=== PATIENT | male | born 1940 | race Caucasian/White ===

== ENCOUNTER 2019-06-14 09:09 | Day surgery (SDC) | payer OTHER ==
[2019-06-14] VITALS (9 sets, daily range): BP systolic 129–149; BP diastolic 66–87
[~2019-06-14] VITALS: Ht 175.3 cm; Wt 93.7 kg
[~2019-06-14 09:09] MED LIST: ALBU18HF2 IH; ASPI-1009 PO; ATOR80TA PO; BUDE10.23 IH; CETI-85 PO; HCTZ25T PO; METO-136 PO; OMEP-84 PO; SILD100T PO; VARE1TAB11 PO; ZET10T PO
[2019-06-14] MEDS ORDERED: diphenhydrAMINE 25mg capsule PO PRN (09:45)
[2019-06-14] MEDS ORDERED: normal saline 1,000 ML IV SCH (09:45)
[2019-06-14] MEDS ORDERED: DIPH-423 PO (10:09)
[2019-06-14] MEDS ORDERED: CARB1TAB23 PO (10:09)
[2019-06-14] MEDS ORDERED: CALC600T12 PO (10:09)
[2019-06-14] MEDS ORDERED: GLUC15006 PO (10:09)
[2019-06-14] MEDS ORDERED: TADA2.5T2 PO (10:09)
[2019-06-14] MEDS ORDERED: VITA1TAB37 PO (10:09)
[2019-06-14] MEDS ORDERED: MAGN500C16 PO (10:09)
[2019-06-14] MEDS ORDERED: MULT-955 PO (10:09)
[2019-06-14] MEDS ORDERED: OMEP20TA5 PO (10:09)
[2019-06-14] MEDS ORDERED: TRAV5DRO OP (10:09)
[2019-06-14] MEDS ORDERED: BRIM5DRO OP (10:09)
[2019-06-14 10:47] LABS: BASOPHILS # (AUTO) 0.1 X10'3 (0-0.2); EOSINOPHILS # (AUTO) 0.1 X10'3 (0-0.9); EOSINOPHILS % (AUTO) 2.3 % (0-6); HEMATOCRIT 30.8 % (42.0-52.0); HEMOGLOBIN 9.6 g/dl (14.0-17.9); LYMPHOCYTES # (AUTO) 0.5 X10'3 (1.1-4.8); LYMPHOCYTES % (AUTO) 8.5 % (21-51); MEAN CORPUSCULAR HEMOGLOBIN 24.9 PG (27.0-31.0); MEAN CORPUSCULAR HGB CONC 31.1 g/dL (33.0-36.5); MEAN CORPUSCULAR VOLUME 80.1 FL (78-98); MEAN PLATELET VOLUME 7.4 FL (7.4-10.4); MONOCYTES # (AUTO) 0.6 X10'3 (0-0.9); MONOCYTES % (AUTO) 10.9 % (2-12); NEUTROPHILS # (AUTO) 4.6 X10'3 (1.8-7.7); NEUTROPHILS % (AUTO) 77.3 % (42-75); PLATELET COUNT 252 X10'3 (140-440); RED BLOOD COUNT 3.85 X10'6 (4.70-6.10); RED CELL DISTRIBUTION WIDTH 19.3 % (11.5-14.5); WHITE BLOOD COUNT 5.9 X10'3 (4.5-11.0)
[2019-06-14 11:10] LABS: ALBUMIN 3.3 G/DL (3.4-5.0); ANION GAP 9 (8-16); BLOOD UREA NITROGEN 19 MG/DL (7-18); CALCIUM 8.4 MG/DL (8.5-10.1); CHLORIDE 107 MMOL/L (99-107); CREATININE 1.27 MG/DL (0.60-1.10); GLUCOSE 105 MG/DL (70-104); POTASSIUM 4.3 MMOL/L (3.5-5.1); SODIUM 143 MMOL/L (135-145); TOTAL CARBON DIOXIDE 27.5 MMOL/L (24-32); eGFR 55 ML/MIN
[2019-06-14 11:40] LABS: ANISOCYTOSIS 2+; ELLIPTOCYTES FEW; PLATELET ESTIMATE NORMAL; POLYCHROMASIA FEW; SCHISTOCYTES FEW; TEAR DROP CELLS FEW
[2019-06-14] MEDS ORDERED: nitroGLYCERIN-Tridil 50MG/D5W 250 ML IV ONE (11:45)
[2019-06-14] MEDS ORDERED: heparin 1,000unit/ml 10ml vial 10 ML ONE ×2 (11:45→12:48)
[2019-06-14] MEDS ORDERED: fentaNYL/PF 50MCG/1 ML 2ML syringe ONE (11:45)
[2019-06-14] MEDS ORDERED: LIDOcaine 1% (10mg/ml)w/preservative injection 20ml MDV ONE (11:45)
[2019-06-14] MEDS ORDERED: verapamil 2.5 mg/ml inj IV ONE (11:45)
[2019-06-14] MEDS ORDERED: midazolam 2 mg/2 ml injection ONE ×6 (11:45→14:21)
[2019-06-14] MEDS ORDERED: iohexol 350 MG/1 ML 200ml bottle ONE (11:46)
[2019-06-14] MEDS ORDERED: clopidogrel 300mg tablet ONE (14:52)
[2019-06-14] MEDS ORDERED: proCHLORperazine 10 MG/2 ml inj IV PRN (15:25)
[2019-06-14] MEDS ORDERED: HYDROcodone/acetaminophen 5mg/325mg tablet PO PRN (15:25)
[2019-06-14] MEDS ORDERED: ondansetron/PF 4mg/2ml inj IV PRN (15:25)
[2019-06-14] MEDS ORDERED: HYDROcodone/acetaminophen 10/325mg tab PO PRN (15:25)
[2019-06-14] MEDS ORDERED: normal saline 1000ml 1,000 ML IV SCH (15:25)
--- NOTE | 2019-06-14 17:00 | NUR ---
placed pressure dressing to rt groin, will continue to monitor, pt vs stable as charted.
--- NOTE | 2019-06-14 17:40 | NUR ---
secured pressure dressing, ariag CD&i. pt sitting up in bed.
--- NOTE | 2019-06-14 18:20 | NUR ---
pt ambulated floor with assistance of walker. Pt states this is patients "normal" strength. site stable.
== END 2019-06-14 21:15 | disposition home or self-care (01) ==
LOC: SSTAY O 09:09
PROVIDERS: ATTEND Internal Medicine Cardiovascular Disease
DX: I70.212 Atherosclerosis of native arteries of extremities with intermittent claudication, left leg (principal); J44.9 Chronic obstructive pulmonary disease, unspecified; I10 Essential (primary) hypertension; F17.210 Nicotine dependence, cigarettes, uncomplicated; I25.10 Atherosclerotic heart disease of native coronary artery without angina pectoris; E78.00 Pure hypercholesterolemia, unspecified; M19.90 Unspecified osteoarthritis, unspecified site; Z98.890 Other specified postprocedural states; Z95.5 Presence of coronary angioplasty implant and graft; Z79.899 Other long term (current) drug therapy; Z79.82 Long term (current) use of aspirin
CPT/HCPCS: 36415; 37225; 37227; 80048; 83735; 85025; 85610; 93005; 99152; 99153; C1725; C1769; C1876; C1885; C1887; C1894; J1644; J2001; J2250; J3010; J7030; Q0163; Q9967; 36140; 36247; A4620; A6258; C1760; C2623; J3490

== ENCOUNTER 2023-11-21 14:58 | Outpatient (CLI) | payer OTHER ==
[~2023-11-21 14:58] MED LIST changes: +BRIM5DRO OP; +CALC600T35 PO; +CARB-313 PO; +DIPH-423 PO; +GLUC15006 PO; +MAGN500C4 PO; +MULT-955 PO; -OMEP-84 PO; +OMEP20TA43 PO; +TADA2.5T2 PO; +TRAV5DRO OP; +VITA1TAB37 PO
[2023-11-21] MEDS ORDERED: iohexol 300mg/ml 100ml inj. ONE (15:20)
== END 2023-11-21 23:59 | disposition home or self-care (01) ==
LOC: RAD 14:58
PROVIDERS: ATTEND Nurse Practitioner Family
DX: D35.02 Benign neoplasm of left adrenal gland (principal); D35.01 Benign neoplasm of right adrenal gland; K57.30 Diverticulosis of large intestine without perforation or abscess without bleeding; K44.9 Diaphragmatic hernia without obstruction or gangrene; J43.2 Centrilobular emphysema; R31.0 Gross hematuria; I25.10 Atherosclerotic heart disease of native coronary artery without angina pectoris; J98.4 Other disorders of lung; N28.1 Cyst of kidney, acquired; I70.0 Atherosclerosis of aorta; M47.815 Spondylosis without myelopathy or radiculopathy, thoracolumbar region
CPT/HCPCS: 74178; J3490; Q9967

== ENCOUNTER 2025-03-08 08:49 | Day surgery (SDC) | payer OTHER ==
[~2025-03-08] VITALS: Ht 177.8 cm; Wt 77.5 kg
[~2025-03-08 08:49] MED LIST changes: +APIX5TAB5 PO; -ASPI-1009 PO; +ATOR-429 PO; -ATOR80TA PO; +BRIM5DRO6 RIGHTEYE; -BUDE10.23 IH; +CALC500T13 PO; -CALC600T35 PO; +CARB25TA PO; -CETI-85 PO; -DIPH-423 PO; +FURO-150 PO; -GLUC15006 PO; -HCTZ25T PO; +IXEK80SY3; +LANS30CA56 PO; -MAGN500C4 PO; -MULT-955 PO; -OMEP20TA43 PO; +POTA-206 PO; +SACU1TAB PO; -SILD100T PO; -TADA2.5T2 PO; -TRAV5DRO OP; -VARE1TAB11 PO; -VITA1TAB37 PO; +XAL0.005OS OP; +[UNRECOGNIZED DRUG - OTHER]; +[UNRECOGNIZED DRUG - OTHER]
[2025-03-08 09:22] VITALS: BP 113/67; PULSE 51; RESP 12
[2025-03-08] MEDS ORDERED: propofol 10mg/ml 20ml vial IV ONE (10:32)
[2025-03-08 10:55] VITALS: BP 112/64; PULSE 46; RESP 15; O2SAT 100
[2025-03-08 11:05] VITALS: BP 107/64; PULSE 48; RESP 16; O2SAT 100
[2025-03-08 11:15] VITALS: BP 114/60; PULSE 48; RESP 14; O2SAT 100
[2025-03-08 11:25] VITALS: BP 118/61; PULSE 44; RESP 16; O2SAT 100
--- NOTE | 2025-03-09 12:09 | PATHOLOGY REPORT ---
[facility] [address] [place] [address] SURGICAL PATHOLOGY REPORT CaseNumber: [id number] Surgeon:Tracey Castillo M.D. CLINICAL INFORMATION CLINICAL INFORMATION: Iron deficiency anemia. DIAGNOSIS DIAGNOSIS: A.SMALL BOWEL, DUODENUM; BIOPSY - NORMAL DUODENAL MUCOSA. DIAGNOSIS: B.STOMACH, ANTRUM; BIOPSY - INACTIVE CHRONIC GASTRITIS, MODERATE. - NEGATIVE FOR H. PYLORI. - NEGATIVE FOR INTESTINAL METAPLASIA. DIAGNOSIS: C.ESOPHAGUS, DISTAL; BIOPSY - INFLAMED JUNCTIONAL MUCOSA WITH INTESTINAL METAPLASIA (TI'S ESOPHAGUS). - NEGATIVE FOR DYSPLASIA. MICROSCOPIC DESCRIPTION A. SMALL BOWEL, DUODENUM MICROSCOPIC DESCRIPTION: Reviewed is 1 H&E stained slide showing multiple levels of small bowel mucos a. Villous architecture is normal. The mucin pattern is normal; intrapepithelial neutrophils are not identified and intraepithelial lymphocytes are not increased. I do not see evidence of gastric foveo lar metaplasia or dysplasia. B. STOMACH, ANTRUM MICROSCOPIC DESCRIPTION: A single H&E slide with multiple levels of gastric mucosa is reviewed. The gastric biopsy shows moderate chronic gastritis. The foveolar cells show reduced apical mucin and mil dly enlarged hyperchromatic nuclei. The lamina propria is expanded by lymphocytes and plasma cells; n o intraepithelial neutrophilic (active) inflammation is identified. Rare lymphoid aggregates are seen in the lamina propria. There is no evidence of dysplasia or neoplasia. No H pylori organisms are bharat ntified. C. ESOPHAGUS, DISTAL MICROSCOPIC DESCRIPTION: Reviewed is 1 H&E stained slide showing multiple levels of mildly inflamed s quamocolumnar junctional mucosa with patchy intestinal metaplasia. The lamina propria is mildly expa nded by lymphoplasmacytic inflammation. I do not see evidence for dysplasia. GROSS DESCRIPTION A. SMALL BOWEL, DUODENUM GROSS DESCRIPTION: Received in a container of formalin labeled with the patient's name, number, and " second portion of duodenum biopsy" are 2 pieces of oliva tissue both 0.2 cm. The specimen is entirely s ubmitted as A1. The time at which the specimen was removed was 1041. The time at which the specimen w as placed in formalin was 1041. B. STOMACH, ANTRUM GROSS DESCRIPTION: Received in a container of formalin labeled with the patient's name, number, and " antrum BX" is a 0.5 x 0.3 x 0.1 cm piece of oliva tissue. The specimen is entirely submitted as B1. The time at which the specimen was removed was 1043. The time at which the specimen was placed in formal in was 1043. C. ESOPHAGUS, DISTAL GROSS DESCRIPTION: Received in a container of formalin labeled with the patient's name, number, and " distal esophagus BX" are 4 pieces of johnson-oliva tissue 0.2-0.3 cm. The specimen is entirely submitted a s C1. The time at which the specimen was removed was 1046. The time at which the specimen was placed in formalin was 1047. Electronically signed by: Blane Brice, 03/09/2025 11:32:00 AM
== END 2025-03-08 11:35 | disposition home or self-care (01) ==
LOC: GI LAB 08:49
PROVIDERS: ATTEND Internal Medicine Gastroenterology
DX: D50.9 Iron deficiency anemia, unspecified (principal); K29.50 Unspecified chronic gastritis without bleeding; K44.9 Diaphragmatic hernia without obstruction or gangrene; K22.70 Barrett's esophagus without dysplasia; I10 Essential (primary) hypertension; I25.10 Atherosclerotic heart disease of native coronary artery without angina pectoris; Z91.048 Other nonmedicinal substance allergy status
CPT/HCPCS: 43239; J2704; J7030; Z7512; 88305